=== PATIENT | male | born 1975 | race Caucasian/White ===

== ENCOUNTER 2017-06-10 00:12 | Inpatient (IN) | payer BC ==
[~2017-06-10] VITALS: Ht 180.3 cm; Wt 110.0 kg
[2017-06-10 00:51] LABS: EOSINOPHIL (%) 0.1 % (0-5); HEMATOCRIT 42.8 % (38.0-50.0); IMMATURE GRANULOCYTE (%) 0.5 % (0.0-0.7); IMMATURE GRANULOCYTE COUNT 0.1 K/uL; INSTRUMENT ABS NEUTROPHIL CT 12.6 K/uL; LYMPHOCYTE COUNT 1.3 K/uL (1.0-2.8); MCH 30.8 PG (29.0-34.0); MCHC 36.2 G/DL (30.0-36.0); MCV 85.1 FL (86-99); MONOCYTE (%) 6.3 % (3-12); NEUTROPHIL (%) 84.2 % (45-76); NEUTROPHIL COUNT 12.6 K/uL (1.8-6.4); PLATELET COUNT 222 K/uL (156-360); RBC DIS.WIDTH-CV 12.1 % (11.8-14.6); RBC DIS.WIDTH-SD 37.5 % (39-53); RED BLOOD COUNT 5.03 M/uL (4.00-5.50)
[2017-06-10 01:01] LABS: CHLORIDE 104 mEq/L (99-109); SODIUM 139 mEq/L (136-147)
[2017-06-10 01:03] LABS: GLUCOSE 150 mg/dL (70-99)
[2017-06-10 01:05] LABS: ANION GAP 13 MEQ/L (2-14)
[2017-06-10 01:07] LABS: GFR ESTIMATE (CALCULATED) > 59 mL/min/
[2017-06-10 01:08] LABS: UREA NITROGEN (BUN) 22 mg/dL (9-23)
[2017-06-10 06:15] VITALS: BP 136/76
[2017-06-10 08:54] VITALS: BP 131/76
[2017-06-10 11:47] VITALS: BP 150/72
[2017-06-10] MEDS ORDERED: ADVIL,NUPRIN,M200 MG PO (15:05)
[2017-06-10] MEDS ORDERED: VICKS NYQUIL C236 ML PO (15:06)
[2017-06-10 16:00] VITALS: BP 119/66
[2017-06-10 20:00] VITALS: BP 129/74
[2017-06-10 23:42] VITALS: BP 142/75
[2017-06-11 04:00] VITALS: BP 127/62
[2017-06-11 06:10] LABS: HEMATOCRIT 41.8 % (38.0-50.0); MCH 30.3 PG (29.0-34.0); MCHC 34.4 G/DL (30.0-36.0); MEAN PLAT.VOLUME 10.3 uM^3 (9.0-12.4); PLATELET COUNT 226 K/uL (156-360); RBC DIS.WIDTH-CV 12.4 % (11.8-14.6); RBC DIS.WIDTH-SD 40.1 % (39-53); RED BLOOD COUNT 4.75 M/uL (4.00-5.50); WHITE BLOOD COUNT 22.6 K/uL (4.1-10.2)
[2017-06-11 06:39] LABS: ALKALINE PHOSPHATASE 56 IU/L (3-129); ANION GAP 7 MEQ/L (2-14); CHLORIDE 107 MEQ/L (99-109); GFR ESTIMATE (CALCULATED) > 59 mL/min/; GLUCOSE 198 mg/dL (70-99); POTASSIUM 4.4 MEQ/L (3.7-5.4); SAMPLE HEMOLYSIS CHECK 0; SAMPLE ICTERIC CHECK 0; SAMPLE LIPEMIA CHECK 0; SODIUM 141 MEQ/L (136-147); TOTAL BILIRUBIN 0.8 MG/DL (0.0-1.0); UREA NITROGEN (BUN) 24 mg/dL (9-23)
[2017-06-11 09:22] VITALS: BP 133/70
[2017-06-11 11:57] VITALS: BP 141/77
[2017-06-11 16:05] VITALS: BP 131/78
[2017-06-11 19:50] VITALS: BP 158/86
[2017-06-11 23:56] VITALS: BP 144/83
[2017-06-12 03:36] VITALS: BP 134/78
[2017-06-12 08:30] VITALS: BP 142/84
[2017-06-12 11:52] VITALS: BP 141/83
[2017-06-12 16:04] VITALS: BP 139/80
[2017-06-12 20:00] VITALS: BP 141/82
[2017-06-13 00:21] VITALS: BP 162/92
[2017-06-13 03:15] VITALS: BP 133/74
[2017-06-13 07:14] VITALS: BP 154/98
[2017-06-13 08:28] LABS: HEMATOCRIT 40.4 % (38.0-50.0); MCHC 35.4 G/DL (30.0-36.0); MCV 87.6 FL (86-99); MEAN PLAT.VOLUME 10.7 uM^3 (9.0-12.4); PLATELET COUNT 267 K/uL (156-360); RBC DIS.WIDTH-CV 12.5 % (11.8-14.6); RBC DIS.WIDTH-SD 40.2 % (39-53); RED BLOOD COUNT 4.61 M/uL (4.00-5.50); WHITE BLOOD COUNT 19.7 K/uL (4.1-10.2)
[2017-06-13 08:50] LABS: ANION GAP 10 MEQ/L (2-14); CHLORIDE 102 MEQ/L (99-109); GFR ESTIMATE (CALCULATED) > 59 mL/min/ (58.99-99999); GLUCOSE 192 mg/dL (70-99); POTASSIUM 4.4 MEQ/L (3.7-5.4); SAMPLE HEMOLYSIS CHECK 0; SAMPLE ICTERIC CHECK 0; SAMPLE LIPEMIA CHECK 0; SODIUM 139 MEQ/L (136-147); UREA NITROGEN (BUN) 24 mg/dL (9-23)
[2017-06-13] MEDS ORDERED: AUGMENTIN875 MG PO (14:05)
[2017-06-13] MEDS ORDERED: PREDNISONE10 MG PO (14:08)
== END 2017-06-13 17:36 | disposition home or self-care (01) | DRG 915 ==
LOC: EME 00:12 → EDOF 04:50 → ENRESERV 04:54 → 5WEST 06:02 → CANRESERV 20:03 → ENRESERV 20:03 → CANRESERV 06-11 23:55 → 5WEST 06-13 17:36
PROVIDERS: Emergency Medicine; Nurse Practitioner Adult Health; Physician Assistant
DX: T78.3XXA Angioneurotic edema, initial encounter (principal); J05.11 Acute epiglottitis with obstruction; R78.81 Bacteremia; F12.90 Cannabis use, unspecified, uncomplicated; J02.0 Streptococcal pharyngitis; J38.4 Edema of larynx; R13.10 Dysphagia, unspecified; Z82.49 Family history of ischemic heart disease and other diseases of the circulatory system; Z82.5 Family history of asthma and other chronic lower respiratory diseases; Z86.61 Personal history of infections of the central nervous system
CPT/HCPCS: 70491; 80048; 80053; 85025; 85027; 87040; 87077; 87186; 87502; 87651 90; 87801; 94640; 99281; 99285; J0295; J1100; J1200; J2930; J3370; J7030; J7050; S0028

== ENCOUNTER 2017-11-07 10:20 | Emergency (ER) | payer BC ==
[~2017-11-07] VITALS: Ht 180.3 cm; Wt 106.0 kg
[~2017-11-07 10:20] MED LIST: ADVIL,NUPRIN,M200 MG PO; AUGMENTIN875 MG PO; PREDNISONE10 MG PO; VICKS NYQUIL C236 ML PO
[2017-11-07 11:52] LABS: BASOPHIL (%) 0.2 % (0-1); EOSINOPHIL (%) 0.6 % (0-5); HEMATOCRIT 44.9 % (38.0-50.0); HEMOGLOBIN 16.1 G/DL (12.5-16.6); IMMATURE GRANULOCYTE (%) 0.5 % (0.0-0.7); LYMPHOCYTE (%) 32.9 % (15-42); LYMPHOCYTE COUNT 2.1 K/uL (1.0-2.8); MCH 30.6 PG (29.0-34.0); MCHC 35.9 G/DL (30.0-36.0); MCV 85.2 FL (86-99); MONOCYTE (%) 8.3 % (3-12); MONOCYTE COUNT 0.5 K/uL (0-0.8); NEUTROPHIL (%) 57.5 % (45-76); NEUTROPHIL COUNT 3.6 K/uL (1.8-6.4); PLATELET COUNT 195 K/uL (156-360); RBC DIS.WIDTH-CV 12.7 % (11.8-14.6); RED BLOOD COUNT 5.27 M/uL (4.00-5.50); WHITE BLOOD COUNT 6.2 K/uL (4.1-10.2)
[2017-11-07 12:02] LABS: ALBUMIN 4.5 g/dL (3.2-4.8); CHLORIDE 107 mEq/L (99-109); POTASSIUM 3.9 mEq/L (3.7-5.4); SODIUM 140 mEq/L (136-147)
[2017-11-07 12:04] LABS: GLUCOSE 89 mg/dL (70-99)
[2017-11-07 12:05] LABS: TOTAL PROTEIN 6.6 g/dL (6.4-8.3)
[2017-11-07 12:06] LABS: TOTAL BILIRUBIN 1.4 mg/dL (0.0-1.0)
[2017-11-07 12:08] LABS: ALKALINE PHOSPHATASE 53 IU/L (3-129); CREATININE 0.9 mg/dL (0.6-1.3); GFR ESTIMATE (CALCULATED) > 59 mL/min/ (58.99-99999)
[2017-11-07 12:09] LABS: UREA NITROGEN (BUN) 13 mg/dL (9-23)
[2017-11-07 12:10] LABS: AST (GOT) 18 IU/L (2-34)
[2017-11-07 12:11] LABS: ALT (GPT) 28 IU/L (3-49)
[2017-11-07 12:52] LABS: THYROTROPIN (TSH) 0.82 MIU/L (0.4-5.5)
[2017-11-07 12:55] LABS: APPEARANCE CLEAR ((CLEAR)); BILIRUBIN NEGATIVE; BLOOD NEGATIVE; COLOR STRAW ((YELLOW)); GLUCOSE (STRIP) NEGATIVE; KETONES 20; LEUKOCYTES NEGATIVE; NITRITE NEGATIVE; PROTEIN (STRIP) NEGATIVE; SPECIFIC GRAVITY 1.009 (1.000-1.030); UCUL ADDED? NO; UROBILINOGEN 0.2 MG/DL (0.2-1.0)
[2017-11-07 13:23] VITALS: BP 148/78
== END 2017-11-07 13:26 | disposition home or self-care (01) ==
LOC: EME 10:20
PROVIDERS: Emergency Medicine
DX: R53.1 Weakness (principal)
CPT/HCPCS: 71046; 80053; 81003; 83605; 84443; 85025; 93005; 99281; 99284; J7030